=== PATIENT | male | born 1965 | race Caucasian/White ===

== ENCOUNTER 2018-01-26 10:59 | Emergency (ER) | payer SELFPAY ==
[2018-01-26] MEDS ORDERED: EPINEPHRINE INJ 30 MG/30 ML VIAL ONE ×2 (11:15→12:35)
[2018-01-26] MEDS ORDERED: EPINEPHRINE INJ/PF 1 MG/1 ML AMPULE ONE (11:16)
[2018-01-26] MEDS ORDERED: ATROPINE SULFATE INJ 1 MG/1 ML VIAL ONE (11:34)
[2018-01-26 11:52] LABS: ARTERIAL BLOOD BASE EXCESS -16.1 mmol/L; ARTERIAL BLOOD H2CO3 2.56 mmol/L (1.05-1.35); ARTERIAL BLOOD HCO3 17.3 mmol/L (20-26); ARTERIAL BLOOD O2 SATURATION 60.3 % (94-98); ARTERIAL BLOOD PO2 50.6 mmHg (80-100); ARTERIAL BLOOD TOTAL CO2 19.9 mmol/L (23-27)
[2018-01-26] MEDS ORDERED: SODIUM BICARBONATE 8.4% INJ 50 MEQ/50 ML DISP.SYRIN ONE ×5 (11:53→16:37)
[2018-01-26 11:54] LABS: ARTERIAL BLOOD FIO2 ROOM AIR; ARTERIAL BLOOD PH 6.93 (7.35-7.45)
--- NOTE | 2018-01-26 12:18 | RADIOLOGY REPORT (SQ) ---
EXAM DESCRIPTION: CHEST SINGLE VIEW COMPLETED DATE/TIME: 01/26/2018 12:10 pm REASON FOR STUDY: post intubation tr2 COMPARISON: None. EXAM PARAMETERS: NUMBER OF VIEWS: One view. TECHNIQUE: Single frontal radiographic view of the chest acquired. RADIATION DOSE: NA LIMITATIONS: Motion. Overlying support apparatus. FINDINGS: LUNGS AND PLEURA: Diffuse bilateral airspace disease. Moderate right pleural effusion. N o pneumothorax. MEDIASTINUM AND HILAR STRUCTURES: No obvious mass. HEART AND VASCULAR STRUCTURES: Normal heart size for technique. BONES: No acute findings. HARDWARE: None in the chest. OTHER: Endotracheal tube tip between thoracic inlet and andrew. IMPRESSION: Edema or sepsis status post intubation. No pneumothorax. TECHNICAL DOCUMENTATION: JOB ID: [id number] [employer]- All Rights Reserved Reading location - IP/workstation name: [email or web address]
[2018-01-26] MEDS ORDERED: NOREPINEPHRINE BITARTRATE INJ/PF 4 MG/4 ML SDV IV ONE (12:20)
[2018-01-26] MEDS ORDERED: AMIODARONE HCL INJ 150 MG/3 ML VIAL IV ONE (12:34)
--- NOTE | 2018-01-26 13:21 | ER Document Report ---
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 And subsequently almost immediately passed out on the ground. The EMS was called, EMS found him in V. fib, cardioverted him, subsequently he became pulseless. CPR they were able to revive him 3 times, repeated 3 CPR with multiple multiple epinephrine. Due to CPR for about 1 and subsequently brought him to the ED. He was brought in to the ED with a CPR was ongoing, patient was unresponsive, fixed dilated pupil. He was orally intubated ALL OTHER SYSTEMS REVIEWED AND NEGATIVE. Dictation was performed using [employer] voice recognition software PHYSICAL EXAMINATION: GENERAL: Unresponsive HEAD: Atraumatic, normocephalic. EYES: Fixed dilated pupils ENT: Nares patent, oropharynx clear without exudates. Moist mucous membranes. NECK: without lymphadenopathy LUNGS: Diminished bilaterally lots of crackles heard HEART: CPR rhythm ABDOMEN: Soft, nontender, nondistended abdomen. No guarding, no rebound. No masses appreciated. Musculoskeletal: NEUROLOGICAL: Unresponsive SKIN: Cyanotic TRAVEL OUTSIDE OF THE [place] IN LAST 30 DAYS: No - HPI Witnessed arrest: Yes Bystander CPR?: Yes Onset: This morning Quality of pain: denies: No pain, Achy, Burning, Cramping, Dull, Fullness, Pressure, Sharp, Stabbing, Throbbing, Other Severity: Severe Symptoms prior to event: Short of breath. negative: Unknown, Abdominal pain, Abnormal blood sugar, Back pain, Chest pain, Defibrillator fired, Diaphoretic, Fever, Headache, Leg pain, Leg swelling, Neuro symptoms, Recent illness, Terminal illness, Other Activity prior to event: Standing. No: At rest, Exertion, Sitting, Trauma, Walking, Other Associated Symptoms: No: None, Fever/Chills, Cough Bloody/Productive, Chest Pain /Tightness, Hurts to Breath, Shortness of Breath, Chest Congestion, Wheezing with Exertion, Wheezing at Rest, Mild Wheezing, Moderate Wheezing, Severe Wheezing, Choking/Foreign Body, Sweaty, Other - Paramedics initial findings Unresponsive: Completely Respirations: Gasping Rhythm: Ventricular fibrillation Glucose (Mg/dl): 120 Blood Pressure: 0/0 Heart Rate: 0 Pulse: None - Pre-hospital treatment Treatment: Bag-valve mask, Defibrillated Epinephrine Dose (mg): 12 Sodium Bicarb dose (amp): 1 - Related Data Allergies/Adverse Reactions: No Known Allergies Allergy (Verified 01/26/18 11:53) Home Medications: Insulin Past Medical History - Social History Smoking Status: Current Every Day Smoker Drug Abuse: None Lives with: Family Family History: Reviewed & Not Pertinent, Malignancy Patient has suicidal ideation: No Patient has homicidal ideation: No - Medical History Medical History: Other - Diabetes - Past Medical History Cardiac Medical History: Denies: None, Hx Atrial Fibrillation, Hx Congestive Heart Failure, Hx Coronary Artery Disease, Hx DVT, Hx Heart Attack, Hx Hypercholesterolemia, Hx Hypertension, Hx Peripheral Vascular Disease, Hx Pulmonary Embolism, Hx Heart Murmur, Other Pulmonary Medical History: Denies: None, Hx Asthma, Hx Bronchitis, Hx COPD, Hx Pneumonia, Hx Intubation , Hx Respiratory Failure, Hx Sleep Apnea, Hx Tuberculosis, Other EENT Medical History: Denies: None, Eyes, Ears, Nose, Throat, Other Neurological Medical History: Denies: None, Hx Cerebrovascular Accident, Hx Migraine, Hx Seizures, Other Endocrine Medical History: Reports: Hx Diabetes Mellitus Type 2 Malignancy Medical History: Denies None, Denies Hx Bone Cancer, Denies Hx Brain Cancer, Denies Hx Colorectal Cancer, Denies Hx Leukemia, Denies Hx Liver Cancer , Denies Hx Lung Cancer, Denies Hx Lymphoma, Denies Hx Pancreatic Cancer, Denies Hx Prostate Cancer, Denies Hx Renal (Kidney) Cancer, Denies Hx Skin Cancer, Denies Hx Testicular Cancer, Denies Other Review of Systems - Review of Systems -: Yes ROS unobtainable due to patient's medical condition Physical Exam - Vital signs Vitals: Resp 41 H 01/26/18 11:01 Course - Re-evaluation Re-evalutation: 01/26/18 CPR was initiated rather continued on arrival. Please refer to CPR Documentation by the nurses for full details. The total CPR time was 1 hour and 45 minutes Which includes 4-5 5 times up spontaneous response with good pulse. Started on multiple drips including lidocaine epinephrine amiodarone bicarb and Levophed Multiple amp of bicarb was given after the ABG results came back at 6.9 pH Endotracheally intubated Central line placed in right internal jugular vein. Family was consulted, discussed multiple times. Including the mother, aunt, girlfriend, son. Finally with no response and fixed dilated pupil no pulses CPR was called off. At 1240 01/26/18 13:29 He was endotracheally intubated - Vital Signs Vital signs: Temp Pulse Resp BP Pulse Ox 92.7 F L 16 49/40 L 58 L 01/26/18 12:40 01/26/18 12:40 01/26/18 12:40 01/26/18 12:40 - Laboratory Laboratory results interpreted by me: 01/26/18 11:30 Carbonic Acid 2.56 H ABG pH 6.93 L* ABG pCO2 85.0 H* ABG pO2 50.6 L ABG HCO3 17.3 L ABG Total CO2 19.9 L ABG O2 Saturation 60.3 L - Diagnostic Test Radiology reviewed: Reports reviewed - Reported by radiologist as pulmonary edema and ET tube in place Procedures - Central Line Right Internal jugular Time completed: 12:00 Consent obtained: No - Emergent Central line pre-insertion: Sterile PPE donned Central line size (Fr.): 18 Central line lumen type: Triple Anesthetic type: 1% Lidocaine mL's of anesthesia: 10 Ultrasound guided: No Line secured with sutures: Yes Central line post-insertion: Blood return from lumens, Biopatch applied, Sutured , Sterile dressing applied, Position confirmed w/ CXR Number of attempts: 1 - Intubation Orotracheal Time of Intubation: 11:15 Airway evaluation: Normal anatomy Mallampati Classification: Class 1 Intubation method: Orotracheal Blade type: Uriostegui Blade size: 4 ETT size: 8.0 ETT secured at: Teeth Breath Sounds after Intubation: Equal End tidal CO2 confirmed: Yes Ventilator settings: CMV Post Intubation Xray: Yes Intubation Complications: No complications - Additional Procedures Cardiopulmonary resuscitation Time performed: 11:10 Notes: 01/26/18 13:34 Cardiopulmonary resuscitation was performed multiple times total length of time is 1 hour and 40 minutes. Critical Care Note - Critical Care Note Total time excluding time spent on procedures (mins): 140 Comments: Performing CPR Discharge - Discharge Clinical Impression: Cardiopulmonary arrest Disposition:
[2018-01-26 13:33] VITALS: BP 0/0
[2018-01-26 13:58] LABS: APPEARANCE,URINE SLIGHTLY-CLOUDY; BILIRUBIN,URINE NEGATIVE (NEGATIVE); COLOR,URINE YELLOW; GLUCOSE, URINE NEGATIVE (NEGATIVE); KETONES,URINE NEGATIVE (NEGATIVE); LEUKOCYTE ESTERASE,URINE NEGATIVE (NEGATIVE); NITRITE,URINE NEGATIVE (NEGATIVE); PROTEIN,URINE 100 mg/dL (NEGATIVE); URINE SPECIFIC GRAVITY 1.024; UROBILINOGEN,URINE NEGATIVE mg/dL (<2.0)
[2018-01-26 14:14] LABS: URINE AMPHETAMINES SCREEN NEGATIVE; URINE BARBITURATES SCREEN NEGATIVE; URINE BENZODIAZEPINES SCREEN NEGATIVE; URINE COCAINE SCREEN NEGATIVE; URINE MARIJUANA (THC) SCREEN UNCONFIRMED POSITIVE; URINE METHADONE SCREEN NEGATIVE; URINE PHENCYCLIDINE SCREEN NEGATIVE
[2018-01-26] MEDS ORDERED: ATROPINE SULFATE INJ 1 MG/10 ML DISP.SYRIN IV ONE (16:37)
[2018-01-26] MEDS ORDERED: EPINEPHRINE INJ 1 MG/10 ML DISP.SYRIN ONE (16:37)
--- NOTE | 2018-01-27 07:58 | EKG REPORT ---
SEVERITY:- ABNORMAL ECG - SINUS TACHYCARDIA NONSPECIFIC INTRAVENTRICULAR CONDUCTION DELAY LOW VOLTAGE THROUGHOUT LA ABNORMALITY POOR R WAVE PROGRESSION ANTERIOR LEADS. : Confirmed by: Eagle Melendez MD 27-Jan-2018 07:57:35
== END 2018-01-26 14:07 | disposition expired ==
LOC: EDBD → ER 10:59
DX: I46.9 Cardiac arrest, cause unspecified (principal); E10.9 Type 1 diabetes mellitus without complications; F17.200 Nicotine dependence, unspecified, uncomplicated
CPT/HCPCS: 31500; 93005; 82803; 81001; 80307; 71045; 93010; 36556; C1751; J0461; J0171; J3490